=== PATIENT | male | born 1945 | race Two or more races ===

== ENCOUNTER 2024-01-02 20:51 | Emergency (ER) | payer MEDICARE, OTHER ==
[~2024-01-02] VITALS: Ht 175.3 cm; Wt 81.6 kg
[2024-01-02 21:47] VITALS: BP 147/72; TEMP 98.2; O2SAT 95
[2024-01-02] MEDS ORDERED: AMOX-430 PO (22:05)
[2024-01-02] MEDS ORDERED: TDAP [DIPH/PERTUSSIS/TET] 0.5 ML VIAL IM ONE (22:08)
[2024-01-02] MEDS: TDAP [DIPH/PERTUSSIS/TET] 0.5 ML VIAL IM ONE (22:12)
== END 2024-01-02 22:28 | disposition home or self-care (01) ==
LOC: ER 20:57
DX: S61.432A Puncture wound without foreign body of left hand, initial encounter (principal); W54.0XXA Bitten by dog, initial encounter; Y93.89 Activity, other specified; Y92.89 Other specified places as the place of occurrence of the external cause; Y99.8 Other external cause status
CPT/HCPCS: 90715